=== PATIENT | female | born 2000 | race Caucasian/White ===

== ENCOUNTER → 2024-08-29 10:30 | Outpatient (BNV) | payer OTHER, SELFPAY | PROVIDERS: Visit Provider Psychiatry & Neurology Psychiatry | DX: F39 Unspecified mood [affective] disorder (principal) | CPT/HCPCS: 90837; 99213 ==

== ENCOUNTER 2024-08-30 14:00 | Outpatient (REF) | payer OTHER, SELFPAY ==
[2024-08-31 14:24] LABS: Amphetamine Screen Urine Not Detected (Not Detect); Barbiturates, Urine Not Detected (Not Detect); Benzodiazepines Screen Urine Not Detected (Not Detect); Buprenorphine Scr Not Detected (Not Detect); Cannabinoid Screen Urine POSITIVE (Not Detect); Cocaine Screen Urine POSITIVE (Not Detect); Fentanyl, urine Not Detected (Not Detect); Methadone Screen, Urine Not Detected (Not Detect); Opiate Screen Urine Not Detected (Not Detect); Oxycodone Screen Urine Not Detected (Not Detect); Phencyclidine Screen Urine Not Detected (Not Detect)
== END 2024-08-30 14:01 | disposition home or self-care (01) ==
LOC: HO.LNP 14:00
PROVIDERS: Visit Provider Psychiatry & Neurology Psychiatry
DX: F31.4 Bipolar disorder, current episode depressed, severe, without psychotic features (principal); F15.10 Other stimulant abuse, uncomplicated; F12.90 Cannabis use, unspecified, uncomplicated
CPT/HCPCS: 80307

== ENCOUNTER 2024-09-13 10:00 | Outpatient (RCR) | payer OTHER, SELFPAY ==
[2024-08-29 11:27] VITALS: BMI 27.3
[2024-08-29 11:28] VITALS: BP 92/60; PULSE 60; TEMP 37.1
--- NOTE | 2024-08-29 14:22 | PC.ADMIT ---
Patient is a 23 year old female who was referred to [facility] by her psychiatric prescriber secondary to depression and Adderall use. Patient stated she has cut down her use from using 200-300 mg a day to currently using once a week taking four 10 mg tabs throughout the day. Stated she gets the Adderall from a friend who has a prescription. Stated she wants to stop using. She also reports using other substances including cocaine 1/2 gram every two weeks, drinking alcohol 1-2 glasses of wine during the week and from -Thursday she drinks 1/4 bottle of Tequila. She also smokes marijuana daily anywhere from 1-5 bowls a day. She stated while she is at [facility] she wants to focus on her Adderall use. She reports she is no longer on prescription Vyvanse ( last filled 06/21/24 #24 tabs. Patient reports she lives with . They have been together for 11 months and living together for 4 months. Patient reports he is supportive. 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 She was going to [facility] for Art however has un-enrolled d/t her mental health. Patient is alert and oriented x4. Calm and cooperative. She presented with depressed mood and anxious affect. Denied SI, no HI. She was given a copy of her safety plan if needed. She reports no day structure and low motivation to do anything. Reports sitting on her couch and starring at the wall for hours. Patient reports her substance use has impacted her life financially and reports she has lied to people in her life about her use however she has recently told her parents about her overuse of Adderall. Medications reconciled with patient and patient's pharmacy. 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 Medication education provided. She reports taking medications as prescribed. Patient reports history of self harm by cutting. She stated that last time she cut herself was a few weeks ago and stated that was the second time in a year. Denied needing sutures. She reports in the past she cut more often when feeling angry.
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
--- NOTE | 2024-09-01 15:47 | HO.PHP ---
Client's case has been opened and reviewed in team.
--- NOTE | 2024-09-09 12:10 | HO.PHPPROGNO ---
Subjective Subjective Date of Service: 09/09/24 Reason For Visit: bipolar,TARAH Diagnostics Vital Signs (24Hr): BMI result Body Mass Index 27.3 Assessment & Plan Certification I certify that partial hospital treatment is medically necessary due to the symptoms and problems resulting from the patient's mental illness and the failure to treat the patient at the partial hospital level of care would likely result in the patient requiring inpatient psychiatric care which could not be prevented at a less intensive level of care. Total time managing care of this patient today ____ minutes. Discharge Plan Discharge Attending provider: Janey Soni Additional Instructions: Monique has an OP therapist, Dorothy Gore, through a private practice, in which her next scheduled appointment is on September 02, 2024 at 2 PM via telehealth. Monique has a med provider, Kathia Vang, through [facility], in which her next scheduled appointment is on September 14, 2024 at 9:30 AM via telehealth. Medications: New amantadine HCl 100 mg tablet 50 mg PO DAILY Qty: 14 0RF guanfacine 1 mg tablet extended release 24 hr 1 mg PO DAILY Qty: 20 0RF lorazepam 0.5 mg tablet 0.5 mg PO DAILY PRN (Reason: anxiety) Qty: 7 0RF Continued atomoxetine 25 mg capsule 50 mg PO QAM Qty: 20 0RF Rx Instructions: start 1 capsule daily in AM for 4-6 days then increase to 2 capsule daily in AM No Action levonorgestrel-ethinyl estrad [Vienva] 0.1-20 mg-mcg tablet 1 tab PO DAILY sertraline 100 mg tablet 100 mg PO DAILY aripiprazole 10 mg tablet 10 mg PO DAILY bupropion HCl 150 mg tablet extended release 24 hr 150 mg PO QAM Patient Comments: Patient reports she has not taken in 2 days and plans on picking up at the pharmacy today. Stand Alone Forms: Patient Portal Discharge page Print Language: [place]
--- NOTE | 2024-09-13 16:03 | HO.PHP ---
At roughly 10:30 am Monique left [facility] for the day. Pt left the first group midway, stated she was having a rough morning, she was tearful and stated she needed to step out for a break. When pt did not return, [facility] staff was notified, pt was located, expressed a desire to leave, [facility] staff Leila asked her to wait to meet with [facility] staff before leaving. Service Liaison Representative met with Monique, Monique was encouraged not to leave [facility] early again despite her sad feelings, so she can work through her current struggles in group and receive support but pt declined to stay, stated she wanted to leave for the day, stated she did not know why she was sad but just wanted to go home and did not feel PHP would help her today. Monqiue stated she would not be alone, she would be with her boyfriend, denied SI and did not express safety concerns. Pt asked if she would be able to meet with the dr via telehealth today, Pt informed the doctor was not in today but will likely meet with her tomorrow. Pt agreed to come in tomorrow.
--- NOTE | 2024-09-15 15:18 | HO.PHP ---
[facility] staff member received a phone call from Monique stating that she is feeling to anxious to attend the program today but would still like to discharge. Monique noted that she would like to three way her parents into the conversation and gave the clinician verbal consent to speak with them. Monique parents Yenni and Anton expressed concerns they have been observing with Monique's reaction to the medication she has been taking and stated that they would like to have Monique continue in the program until that is addressed. PHP staff member noted that we would also like to address any medication concerns prior to her being discharged and voiced that she would have to come in to the program in order to get continued support. Monique expressed that she does not want to continue with the program and explored if the med provider could follow up with her via telehealth. PHP staff member stated that she will have to further review with the team to see if we can have the provider call her via telephone to discuss her medications if she isn't going to return. [facility] staff member did inform Monique that we have a covering doctor, in which her parents feel as though she should still speak to the doctor prior to discharging. Monique said she would speak to the provider via telephone but still wants to discharge. Yenni informed the [facility] staff member that Monique shared with her that she is worried about cycling in and out of hospitals and her future. Yenni expressed that Monique is finding the group setting to be more challenging for her because it is creating a feeling of hopelessness. Yenni also disclosed that Monique is still utilizing cocaine on the weekend and though she was still utilizing adderall but Monique corrected her and reported her last adderall use was 4 days prior to starting PHP. Yenni also talked with Monique about possibly going to [facility] or [facility] for continued treatment. [facility] staff member provided psycho-education around what that would look like if they wanted to shift to a new med provider. Yenni was receptive and stated that they are going to continue to explore that as an option. PHP staff member was receptive. Yenni thanked the clinician for her support.
--- NOTE | 2024-09-15 15:27 | HO.PHP ---
PHP staff member reached back out to Monique and informed her that we have her meeting with the provider tomorrow but at this time we don't have the scheduled time and will be reaching out to her then. Monique explored if Dr. Soni would be the one she'd be speaking with. PHP staff member noted that she is uncertain but believes it may be Dr. Breaux. Monique was in agreement to speaking with him and continues to express that she would like to discharge from the program. PHP staff member was receptive.
--- NOTE | 2024-09-16 12:56 | P.PNPSP_ITS ---
Subjective Subjective Date of Service: 09/16/24 Reason For Visit: bipolar,TARAH Healthcare Proxy: No Guardianship: No Medical Problems Affecting Mental Status: Yes Interim History: overall doing well and benefitted from program. Medications have been helpful especially Strattera which has also helped with intrusive thoughts. We did discuss regimen and side effects. Will stop guanfacine. Has only utilized Ativan 2-3 times which is appropriate. Continuing amantadine. Has follow-up on Thursday09/19/2024. Send 10 day script for Strattera. Medication Compliance: Yes Side effects from medications: No Attending Groups: Yes Review of Systems Acute medical concerns: No Mental Status Exam Mental Status Exam Patient Appearance: Well Grooomed Patient Orientation: Person, Place, Time and Situation Level of Consciousness: Awake Patient Behavior: Appropriate Mood Description: Calm Affect Description: Calm Patient Cognition Impaired: No Ability to Follow Directions: Good Speech Pattern: Clear Memory Description: Intact Hallucinations: None Delusions: Not Present Thought Process: Intact Thought Content: positive for Intact Judgement: Good Diagnostics Vital Signs (24Hr): BMI result Body Mass Index 27.3 Assessment & Plan Assessment & Plan (1) Mood disorder: Status: Acute Code(s): F39 - Unspecified mood [affective] disorder Plan stable and doing well and ready for discharge. Has follow-up on Thursday09/19/2024. Send 10 day script for Strattera. Patient educated on: medication risk/benefits Informed Consent: understands Reason for contiued partial hosp. stay Substantial Risk for: stable for discharge Certification I certify that partial hospital treatment is medically necessary due to the symptoms and problems resulting from the patient's mental illness and the failure to treat the patient at the partial hospital level of care would likely result in the patient requiring inpatient psychiatric care which could not be prevented at a less intensive level of care. Total time managing care of this patient today _20___ minutes. Discharge Plan Discharge Attending provider: Janey Soni Additional Instructions: Monique has an OP therapist, Dorothy Gore, through a private practice, in which her next scheduled appointment is on September 02, 2024 at 2 PM via telehealth. Monique has a med provider, Kathia Vang, through [facility], in which her next scheduled appointment is on September 19, 2024 at 4pm via telehealth. Medications: New amantadine HCl 100 mg tablet 50 mg PO DAILY Qty: 14 0RF guanfacine 1 mg tablet extended release 24 hr 1 mg PO DAILY Qty: 20 0RF lorazepam 0.5 mg tablet 0.5 mg PO DAILY PRN (Reason: anxiety) Qty: 7 0RF Continued atomoxetine 25 mg capsule 50 mg PO QAM 10 Days Qty: 20 0RF Rx Instructions: 2 capsule daily in AM No Action levonorgestrel-ethinyl estrad [Vienva] 0.1-20 mg-mcg tablet 1 tab PO DAILY sertraline 100 mg tablet 100 mg PO DAILY aripiprazole 10 mg tablet 10 mg PO DAILY bupropion HCl 150 mg tablet extended release 24 hr 150 mg PO QAM Patient Comments: Patient reports she has not taken in 2 days and plans on picking up at the pharmacy today. Stand Alone Forms: Patient Portal Discharge page Print Language: Serbian Telehealth Telehealth Telehealth Platform: Other (please specify) ([employer]) Location of provider rendering services: other ( [place]) Location of patient: other ( [facility]) Patient Identification confirmed using: Name, : Yes Telehealth method: video Patient verbally consented to treatment: Yes Minutes spent on Phone/Video with Pt.: 10
== END 2024-09-13 23:59 | disposition home or self-care (01) ==
LOC: HO.PHPA 10:00
PROVIDERS: Visit Provider Psychiatry & Neurology Psychiatry
DX: F39 Unspecified mood [affective] disorder (principal); F90.0 Attention-deficit hyperactivity disorder, predominantly inattentive type; F15.20 Other stimulant dependence, uncomplicated; F10.10 Alcohol abuse, uncomplicated; F19.10 Other psychoactive substance abuse, uncomplicated; Z79.899 Other long term (current) drug therapy
CPT/HCPCS: 90791; 90853